=== PATIENT | male | born 1980 | race American Indian/Alaskan Native ===

== ENCOUNTER 2018-03-20 16:20 | Emergency (ER) | payer SELFPAY ==
[2018-03-20 17:25] VITALS: BP 127/76
--- NOTE | 2018-03-20 20:00 | Emergency Department Report ---
ED ENT HPI - General Chief complaint: Dental/Oral Stated complaint: FACIAL SWELLING Time Seen by Provider: 03/20/18 19:43 Source: patient Mode of arrival: Ambulatory Limitations: No Limitations - History of Present Illness Initial comments: pt isia 38 y/o aam with hx of dental carries who presents for dental pain x 2 weeks described as aching 5/10 exacerbated by hot and cold stimuli, pt is tolerating po intake there is no throat or ear pain no fever no chills no n/v no facial swelling MD complaint: tooth pain Onset/Timin -: week(s) Location: tooth # (5) Severity: moderate Severity scale (0 -10): 5 Quality: aching Consistency: intermittent Improves with: none Worsens with: eating, other (hot cold stimuli ) Context- Dental: poor dental care Associated Symptoms: gum swelling, toothache. denies: fever, cough, pain with swallowing, sore throat, tinnitus, hearing loss, discharge from ear, rhinorrhea - Related Data Previous Rx's Medication Instructions Recorded Last Taken Type Chlorhexidine Mouthwash [Peridex] 15 ml MM BID #1 bottle 03/20/18 Unknown Rx Clindamycin [Clindamycin CAP] 300 mg PO Q8H #30 cap 03/20/18 Unknown Rx traMADol [Ultram] 50 mg PO Q6HR PRN #10 tablet 03/20/18 Unknown Rx Allergies Allergy/AdvReac Type Severity Reaction Status Date / Time Penicillins Allergy Rash Verified 03/20/18 17:25 ED Dental HPI - General Chief complaint: Dental/Oral Stated complaint: FACIAL SWELLING Time Seen by Provider: 03/20/18 19:43 Source: patient Mode of arrival: Ambulatory Limitations: No Limitations - Related Data Previous Rx's Medication Instructions Recorded Last Taken Type Chlorhexidine Mouthwash [Peridex] 15 ml MM BID #1 bottle 03/20/18 Unknown Rx Clindamycin [Clindamycin CAP] 300 mg PO Q8H #30 cap 03/20/18 Unknown Rx traMADol [Ultram] 50 mg PO Q6HR PRN #10 tablet 03/20/18 Unknown Rx Allergies Allergy/AdvReac Type Severity Reaction Status Date / Time Penicillins Allergy Rash Verified 03/20/18 17:25 ED Review of Systems ROS: Stated complaint: FACIAL SWELLING Other details as noted in HPI Constitutional: denies: chills, fever Eyes: denies: eye pain, eye discharge, vision change ENT: dental pain. denies: ear pain, throat pain, hearing loss, epistaxis, congestion Respiratory: denies: cough, shortness of breath, wheezing Cardiovascular: denies: chest pain, palpitations Endocrine: no symptoms reported Gastrointestinal: denies: abdominal pain, nausea, diarrhea Genitourinary: denies: urgency, dysuria Musculoskeletal: denies: back pain, joint swelling, arthralgia Skin: denies: rash, lesions Neurological: denies: headache, weakness, paresthesias Psychiatric: denies: anxiety, depression Hematological/Lymphatic: denies: easy bleeding, easy bruising ED Past Medical Hx - Past Medical History Previous Medical History?: No - Surgical History Past Surgical History?: No - Social History Smoking Status: Current Every Day Smoker Substance Use Type: Alcohol - Medications Home Medications: Home Medications Medication Instructions Recorded Confirmed Last Taken Type Chlorhexidine Mouthwash [Peridex] 15 ml MM BID #1 bottle 03/20/18 Unknown Rx Clindamycin [Clindamycin CAP] 300 mg PO Q8H #30 cap 03/20/18 Unknown Rx traMADol [Ultram] 50 mg PO Q6HR PRN #10 tablet 03/20/18 Unknown Rx ED Physical Exam - General Limitations: No Limitations General appearance: alert, in no apparent distress - Head Head exam: Present: atraumatic, normocephalic - Eye Eye exam: Present: normal appearance - ENT ENT exam: Present: mucous membranes moist - Expanded ENT Exam Expanded Teeth exam: Present: dental caries, dental tenderness # (5 mild gum swelling erythema no focal abscess no trismus uvula midline, no stidor ) - Neck Neck exam: Present: normal inspection - Respiratory Respiratory exam: Present: normal lung sounds bilaterally. Absent: respiratory distress - Cardiovascular Cardiovascular Exam: Present: regular rate, normal rhythm. Absent: systolic murmur, diastolic murmur, rubs, gallop - GI/Abdominal GI/Abdominal exam: Present: soft, normal bowel sounds - Rectal Rectal exam: Present: deferred - Extremities Exam Extremities exam: Present: normal inspection - Back Exam Back exam: Present: normal inspection - Neurological Exam Neurological exam: Present: alert, oriented X3 - Psychiatric Psychiatric exam: Present: normal affect, normal mood - Skin Skin exam: Present: warm, dry, intact, normal color. Absent: rash ED Course Vital Signs 04/22/18 17:23 Temperature 98.5 F Pulse Rate 62 Respiratory 18 Rate Blood Pressure 127/76 O2 Sat by Pulse 98 Oximetry ED Medical Decision Making - Medical Decision Making Infected dental carries mild gum swelling plan: pt is pcn allergici doses tolerate clindamycin , will rx same, peridex, ultram follow up with dentist given [facility] referral packet pt verbalized agreement and understanding of same. Critical care attestation.: If time is entered above; I have spent that time in minutes in the direct care of this critically ill patient, excluding procedure time. ED Disposition Clinical Impression: Infected dental carries Disposition: DC-01 TO HOME OR SELFCARE Is pt being admited?: No Does the pt Need Aspirin: No Condition: Good Instructions: Dental Caries (ED) Prescriptions: Chlorhexidine Mouthwash [Peridex] 15 ml MM BID #1 bottle Clindamycin [Clindamycin CAP] 300 mg PO Q8H #30 cap traMADol [Ultram] 50 mg PO Q6HR PRN #10 tablet PRN Reason: Pain Referrals: [facility] [Outside] - 3-5 Days Forms: Work/School Release Form(ED)
[2018-03-20] MEDS ORDERED: ULTRAM PO ONE (20:05)
== END 2018-03-20 20:05 | disposition home or self-care (01) ==
LOC: ED 16:20
DX: K02.9 Dental caries, unspecified (principal); F17.200 Nicotine dependence, unspecified, uncomplicated; Z88.0 Allergy status to penicillin
CPT/HCPCS: 99282

== ENCOUNTER 2018-07-29 20:57 | Emergency (ER) | payer SELFPAY ==
[2018-07-29 21:12] VITALS: BP 148/81
== END 2018-07-30 01:00 | disposition left against medical advice (07) ==
LOC: ED 20:57
DX: K14.9 Disease of tongue, unspecified (principal); Z53.21 Procedure and treatment not carried out due to patient leaving prior to being seen by health care provider